=== PATIENT | female | born 1985 | race African-American/Black ===

== ENCOUNTER 2021-04-18 08:17 | Emergency (ER) | payer MEDICAID ==
[2021-04-18 09:18] LABS: CORONAVIRUS COVID-19 NAA POSITIVE (NEGATIVE); INFLUENZA A NAA NEGATIVE (NEGATIVE); INFLUENZA B NAA NEGATIVE (NEGATIVE)
--- NOTE | 2021-04-18 09:50 | EDM.PDOC ---
ED HPI GENERAL MEDICAL PROBLEM - General Chief Complaint: ENT Problem Stated Complaint: POSSIBLE STREP THROAT Time Seen by Provider: 04/18/21 08:37 - History of Present Illness INITIAL COMMENTS - FREE TEXT/NARRATIVE: CHIEF COMPLAINT(S): Sore throat HISTORY OF PRESENT ILLNESS: This is a 35-year-old woman without any significant past medical history who comes to the emergency department with a chief complaint of sore throat. The patient states that for approximately 3 days now she has been experiencing a sore throat, cough which is nonproductive and a bifrontal headache which she describes as mild rated 4-5 out of 10 not associated with any numbness, tingling or weakness. In regards to her sore throat she rates this pain as 9 out of 10 and describes it as a burning sensation. She states the pain is worse when she swallows. She denies any drooling or voice changes. She denies any fever or chills. 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 REVIEW OF SYSTEMS: Constitutional: Denies fever, chills. Eyes: Denies eye pain Ears, Nose, Mouth, & Throat: Covid positive for sore throat. Cardiovascular: Denies chest pain Respiratory: Positive for nonproductive cough. Denies shortness of breath Gastrointestinal: Denies Nausea, vomiting, diarrhea, hematochezia. Genitourinary: Denies hematuria Skin:Denies a rash MSK: Denies joint pain Neurological: Positive for headache. Denies blurred vision, numbness, tingling, weakness psychiatric: Denies depression PAST MEDICAL HISTORY: As per history of present illness and as reviewed below otherwise noncontributory. SURGICAL HISTORY: As per history of present illness and as reviewed below otherwise noncontributory. SOCIAL HISTORY: As per history of present illness and as reviewed below otherwise noncontributory. FAMILY HISTORY: As per history of present illness and as reviewed below otherwise noncontributory. EXAMINATION OF ORGAN SYSTEMS/BODY AREAS: Constitutional: Heart rate 83, blood pressure 124/83, respiratory rate 16 with an oxygen saturation 98% on room air. Temperature 36.2 General: Well-appearing woman who is in no acute distress Psychiatric: Appropriate mood and affect. Eyes: No scleral icterus or conjunctival erythema pupils pupils are equal round reactive to light. Extraocular movements intact. No nystagmus. ENMT: Moist mucous membranes. No pharyngeal erythema no stridor, drooling, trismus. No tonsillar exudates or swelling. Cardiovascular: Regular, rate, and rhythm. No gallops, murmurs, or rubs. Bilateral upper extremity pulses symmetric and intact. No peripheral edema. No JVD. Respiratory: Lungs clear to auscultation bilaterally. No wheezes, rales, or rhonchi. Gastrointestinal: Soft, non-tender, non-distended. Normoactive bowel sounds Genitourinary: No suprapubic tenderness Musculoskeletal: Normal range of motion. Skin: No lesions or abrasions. Neurological: Alert, GCS 15 strength and sensation grossly intact in upper and lower extremities bilaterally MEDICAL DECISION MAKING AND COURSE IN THE ED WITH INTERPRETATION/REVIEW OF DIAGNOSTIC STUDIES: This is a 35-year-old man without any significant past medical history other than obesity who comes to the emergency department with nonproductive cough, sore throat and a bifrontal headache. At this time the patient's vital signs are completely normal and given that she does work at a daycare she is likely being exposed to a virus. We will obtain Covid and influenza swab. We will also obtain a group A strep swab. We will provide the patient with Toradol for pain relief. The patient was amenable to this plan. DDx: Strep throat, Covid, influenza Laboratory: Covid is positive. Influenza negative. Strep a negative. After labs I did discuss results with the patient. At this time the patient does meet inclusion criteria for monoclonal antibody treatment. I did provide her with information and faxed her information over. I did discuss strict return precautions with the patient. She was amenable discharge and had no further questions DISPOSITION: The patient was discharged home in stable condition. The patient will follow up with primary care physician after isolation CONDITION: Fair PROCEDURES: None FINAL IMPRESSION(S)/DIAGNOSES: 1. Acute COVID-19 infection Sesar Celestin M.D. Throat Pain Score (Numeric/FACES): 9 - Related Data Allergies Allergy/AdvReac Type Severity Reaction Status Date / Time Penicillins Allergy Other Verified 04/18/21 08:23 Past Medical History Other TENTER History: , leap procedure - Infectious Disease History Infectious Disease History: Reports: Chicken Pox Social & Family History - Family History Family Medical History: No Pertinent Family History ED ROS GENERAL - Review of Systems Review Of Systems: See Below ED EXAM, GENERAL - Physical Exam Exam: See Below Course - Vital Signs Last Recorded V/S: Last Vital Signs Temp 36.3 C 04/18/21 10:39 Pulse 86 04/18/21 10:39 Resp 18 04/18/21 10:39 BP 133/91 H 04/18/21 10:39 Pulse Ox 97 04/18/21 10:39 - Orders/Labs/Meds Labs: Laboratory Tests 04/18/21 04/18/21 Range/Units 08:30 08:30 Influenza Type A RNA NEGATIVE (NEGATIVE) Influenza Type B RNA NEGATIVE (NEGATIVE) SARS-CoV-2 RNA (JAMILA) POSITIVE H (NEGATIVE) Group A Strep (PCR) NOT DETECTED (NOT DETECT) Meds: Medications Discontinued Medications Generic Name Dose Route Start Last Admin Trade Name Alonso PRN Reason Stop Dose Admin Ketorolac Tromethamine 30 mg 04/18/21 10:33 04/18/21 10:37 Ketorolac 30 Mg/Ml Sdv IM 04/18/21 10:34 30 mg ONETIME STA Administration Ketorolac Tromethamine Confirm 04/18/21 10:35 04/18/21 10:39 Ketorolac 30 Mg/Ml Sdv Administered 04/18/21 10:36 Not Given Dose 30 mg .ROUTE .STK-MED ONE Departure - Departure Time of Disposition: 09:49 Disposition: Home, Self-Care 01 Condition: Fair Clinical Impression: COVID-19 - Discharge Information *PRESCRIPTION DRUG MONITORING PROGRAM REVIEWED*: No *COPY OF PRESCRIPTION DRUG MONITORING REPORT IN PATIENT JOSEF: No Instructions: How to Protect Yourself and Others - [facility] (11/27/2020), 10 Things You Can Do to Manage Your COVID-19 Symptoms at Home - [facility] (10/30/2020), COVID-19 Quarantine vs. Isolation - [facility] (01/11/2021), COVID-19: What to Do If You Are Sick- [facility] (07/01/2020) Referrals: PCP,None [Primary Care Provider] - Forms: ED Department Discharge Additional Instructions: You should take acetaminophen 500-1000 mg every 6 hours as needed for fever and muscle aches. Please drink plenty of fluids and get plenty of rest over the next several days. We would recommend that you get a pulse oximeter from the pharmacy to keep an eye on your oxygen level. If your oxygen level drops below 91%, you should return to the ED for evaluation. You should return to the ER sooner if you start having any symptoms of shortness of breath or any other new or concerning symptoms. 1. Your COVID-19 screening is positive. That means you do have the coronavirus and you are considered contagious. Your vital signs and oxygen saturation are well enough that you were able to monitor your symptoms at home. Continue to monitor for trouble breathing, new confusion or inability to arouse, bluish lips or face or any of the other symptoms we discussed -if this occurs please return to the emergency room. 2. Please self quarantine over the next 5 days. Inform any persons that you have been in contact with since you started becoming symptomatic that you have tested positive; they should be made aware and take the appropriate steps as ne eded. If your symptoms have improved and you did not have a fever for 24 hours you can return to work per [place] guidelines. 3. May alternate Tylenol and ibuprofen as needed for pain and fever management. 4. The [facility] will be calling you and following up with you. The [place] COVID 19 Hotline phone number , They are open Monday - Monday 7am - 7pm. Follow up with your primary care provider for re-evaluation and re-testing after the 5 day quarantine and discuss when you should be seen. [facility] - [facility] [address] [place] [address] [id number] [address] [id number] The patient is informed of any results of their evaluation and diagnostic workup and all questions are answered. They are given discharge instructions and return precautions. The patient is stable for discharge. The patient states they understand and agree with the plan and that they will return if their symptoms get worse or if they have any new concerns. The following information is given to patients seen in the emergency department who are being discharged to home. This information is to outline your options for follow-up care. We provide all patients seen in our emergency department with a follow-up referral. The need for follow-up, as well as the timing and circumstances, are variable depending upon the specifics of your emergency department visit. If you don't have a primary care physician on staff, we will provide you with a referral. We always advise you to contact your personal physician following an emergency department visit to inform them of the circumstance of the visit and for follow-up with them and/or the need for any referrals to a consulting specialist. The emergency department will also refer you to a specialist when appropriate. This referral assures that you have the opportunity for follow-up care with a specialist. All of these measure are taken in an effort to provide you with optimal care, which includes your follow-up. Under all circumstances we always encourage you to contact your private physician who remains a resource for coordinating your care. When calling for follow-up care, please make the office aware that this follow-up is from your recent emergency room visit. If for any reason you are refused follow-up, please contact the [facility] Emergency Department at and asked to speak to the emergency department charge nurse. Sepsis Event Note (ED) - Evaluation Sepsis Screening Result: No Definite Risk
[2021-04-18] MEDS ORDERED: Ketorolac 30 MG/ML SDV IM STA (10:33)
[2021-04-18] MEDS ORDERED: Ketorolac 30 MG/ML SDV ONE (10:35)
== END 2021-04-18 10:39 | disposition home or self-care (01) ==
LOC: MW.ED 08:17
DX: U07.1 COVID-19 (principal); Z88.0 Allergy status to penicillin
CPT/HCPCS: 0240U; 87651; 96372; 99284; J1885

== ENCOUNTER 2022-08-19 16:16 | Emergency (ER) | payer MEDICAID | END 2022-08-19 17:10 | disposition left against medical advice (07) | LOC: MW.ED 16:16 | DX: Z53.21 Procedure and treatment not carried out due to patient leaving prior to being seen by health care provider (principal) ==